=== PATIENT | female | born 1970 | race Asian ===

== ENCOUNTER 2016-04-27 08:30 | Outpatient (CLI) | payer OTHER ==
[2016-04-27 09:18] LABS: ALT (SGPT) 11 U/L (0-55); AST (SGOT) 14 U/L (5-34); Alkaline Phosphatase 48 U/L (40-150); Anion Gap 14 mmol/L (10-20); BUN (Urea Nitrogen) 6 mg/dL (7.0-18.7); Bilirubin, Total 0.7 mg/dL (0.2-1.2); CK (CPK) 49 U/L (29-168); Calc. Creatinine Clearance 0 mL/min (70-130); Calcium 9.2 mg/dL (7.8-10.44); Carbon Dioxide 24 mmol/L (22-29); Chloride 107 mmol/L (98-107); Estimated GFR-MDRD Greater than 90; Globulin 3.3 g/dL (2.4-3.5)
[2016-04-27 09:48] LABS: #Basophils 0.1 thou/uL (0.0-0.2); #Eosinphils 0.1 thou/uL (0.0-0.7); #Monocytes 0.2 thou/uL (0.11-0.59); #Neutrophils 3.8 thou/uL (1.40-6.50); %Basophils 2.2 % (0.0-1.0); %Eosinophils 2.5 % (0.0-10.0); %Monocytes 4.1 % (0.0-10.0); Hematocrit 48.6 % (36.0-47.0); Mean Platelet Volume 6.5 fL (7.4-10.4); White Blood Cell (WBC) Count 5.3 thou/uL (4.8-10.8)
[2016-04-29 09:19] LABS: SS-A IgG Autoabs-IAA <0.2 AI (0.0-0.9); SS-B IgG Autoabs-IAA <0.2 AI (0.0-0.9); U1RNP/snRNP IGG Autoabs <0.2 AI (0.0-0.9)
== END 2016-04-27 08:31 | disposition home or self-care (01) ==
LOC: BURLAB 08:30
PROVIDERS: ATTEND Student in an Organized Health Care Education/Training Program
DX: E53.1 Pyridoxine deficiency (principal); E55.9 Vitamin D deficiency, unspecified; E53.8 Deficiency of other specified B group vitamins; R53.83 Other fatigue; G40.309 Generalized idiopathic epilepsy and epileptic syndromes, not intractable, without status epilepticus
CPT/HCPCS: 36415; 80053; 82306; 82550; 82607; 82951; 84165; 84207; 84425; 84443; 85025; 85652; 86038; 86140; 86334